=== PATIENT | female | born 1975 | race Caucasian/White ===

== ENCOUNTER → 2018-09-29 | Outpatient (CLI) | payer OTHER | END | disposition home or self-care (01) | LOC: CFH 07:08 | PROVIDERS: ATTEND Family Medicine | DX: N85.2 Hypertrophy of uterus (principal); N85.8 Other specified noninflammatory disorders of uterus | CPT/HCPCS: 76830 ==

== ENCOUNTER → 2019-02-07 | Outpatient (CLI) | payer OTHER ==
[~2019-02-07] MED LIST: ESTR1PAT49 TD; MULT-516 PO; PROGESTERONE TD; THYR30TA PO
[2019-02-07 09:58] LABS: BASOPHILS # (AUTO) 0.03 x10^3/uL (0-0.1); MD NO; MEAN PLATELET VOLUME 7.4 fL (7.4-10.4)
[2019-02-07 10:06] LABS: INTERNATIONAL NORMALIZED RATIO 1.05 (0.93-1.1)
[2019-02-07 10:07] LABS: BASOPHILS % (AUTO) 1 % (0-1); EOSINOPHILS # (AUTO) 0.07 x10^3/uL (0-0.4); EOSINOPHILS % (AUTO) 1 % (1-7); LYMPHOCYTES # (AUTO) 1.63 x10^3/uL (1-3.4); LYMPHOCYTES % (AUTO) 32 % (22-44); MEAN CORPUSCULAR HEMOGLOBIN 29.2 pg (27.0-34.8); MEAN CORPUSCULAR HGB CONC 32.9 g/dL (32.4-35.8); MEAN CORPUSCULAR VOLUME 88.7 fL (80-100); MONOCYTES % (AUTO) 8 % (2-9); NEUTROPHILS # (AUTO) 2.97 x10^3/uL (1.8-6.8); NEUTROPHILS % (AUTO) 58 % (42-75); PLATELET COUNT 249 x10^3/uL (130-400); RED BLOOD COUNT 5.42 x10^6/uL (3.82-5.3); RED CELL DISTRIBUTION WIDTH 14.5 % (9.6-15.2)
[2019-02-07 10:15] LABS: ALANINE AMINOTRANSFERASE 35 U/L (12-78); ALBUMIN 4.1 g/dL (3.4-5.0); ANION GAP 3 mmol/L (5-15); CHLORIDE 106 mmol/L (98-107); CREATININE 0.75 mg/dL (0.55-1.02)
[2019-02-07 10:19] LABS: ALKALINE PHOSPHATASE 59 U/L (45-117); BILIRUBIN,TOTAL 0.7 mg/dL (0.2-1.0); TOTAL PROTEIN 8.1 g/dL (6.4-8.2)
== END | disposition home or self-care (01) ==
LOC: STAR 08:21
PROVIDERS: ATTEND Specialist
DX: Z01.818 Encounter for other preprocedural examination (principal); D25.9 Leiomyoma of uterus, unspecified; R19.07 Generalized intra-abdominal and pelvic swelling, mass and lump; Z82.49 Family history of ischemic heart disease and other diseases of the circulatory system
CPT/HCPCS: 36415; 80053; 83615; 84703; 85025; 85610; 85730; 93005

== ENCOUNTER 2019-02-13 08:18 | Inpatient (IN) | payer OTHER ==
[~2019-02-13] VITALS: Ht 165.1 cm; Wt 78.3 kg
[2019-02-13] MEDS ORDERED: LACTATED RINGERS 1,000 ML IV SCH (08:41)
[2019-02-13 08:57] VITALS: BP 136/82
[2019-02-13] MEDS ORDERED: ONDANSETRON ODT 8 MG PO ONE (09:00)
[2019-02-13] MEDS ORDERED: SCOPOLAMINE PATCH, 1.5MG PATCH.TD72 TD ONE (09:00)
[2019-02-13] MEDS ORDERED: GABAPENTIN 300 MG CAPSULE PO ONE (09:00)
[2019-02-13] MEDS ORDERED: FENTANYL PF 250 MCG/5ML ONE (10:53)
[2019-02-13] MEDS ORDERED: CEFAZOLIN 1,000 MG ONE (10:54)
[2019-02-13] MEDS ORDERED: LIDOCAINE 2% 100MG/5ML SYRINGE ONE (10:54)
[2019-02-13] MEDS ORDERED: NEOSTIGMINE 1 MG/ML, 10ML ONE (10:54)
[2019-02-13] MEDS ORDERED: ROCURONIUM 10MG/ML,5ML ONE (10:54)
[2019-02-13] MEDS ORDERED: DEXAMETHASONE 4 MG/ML, 1ML ONE (10:54)
[2019-02-13] MEDS ORDERED: GLYCOPYRROLATE 0.2MG/1ML, 5ML ONE (10:54)
[2019-02-13] MEDS ORDERED: PROPOFOL 10 MG/ML, 20ML ONE (10:54)
[2019-02-13] MEDS ORDERED: METOCLOPRAMIDE 5 MG/ML, 2ML ONE (10:54)
[2019-02-13] MEDS ORDERED: MORPHINE SULFATE 4 MG/ML, 1ML IVPush PRN (12:00)
[2019-02-13] MEDS ORDERED: OXYcodone 5 MG/5 ML ORAL.SOL UDC PO PRN (12:00)
[2019-02-13] MEDS ORDERED: hydrALAzine 20 MG/ML, 1ML IV PRN (12:00)
[2019-02-13] MEDS ORDERED: PROMETHAZINE 25 MG/ML, 1ML IV PRN (12:00)
[2019-02-13] MEDS ORDERED: LABETALOL 5MG/ML, 20ML IV PRN (12:00)
[2019-02-13] MEDS: HYDROmorphone 2 MG/ML, 1ML IVPush PRN ×4 (13:01→13:44)
[2019-02-13] MEDS ORDERED: PROMETHAZINE 25 MG/ML, 1ML ONE (13:07)
[2019-02-13] MEDS ORDERED: FENTANYL PF 100 MCG/2ML ONE ×2 (13:07→13:49)
[2019-02-13] MEDS ORDERED: HYDROmorphone 1 MG/ML, 1ML AMP ONE ×2 (13:07→13:18)
[2019-02-13] MEDS ORDERED: OXYcodone 5 MG/5 ML ORAL.SOL UDC ONE (13:07)
[2019-02-13] MEDS: FENTANYL PF 100 MCG/2ML IV PRN ×2 (13:10→13:36)
[2019-02-13] MEDS: MEPERIDINE/PF 25MG/0.5ML IVPush PRN ×2 (13:16→13:46)
[2019-02-13] MEDS ORDERED: MEPERIDINE/PF 25MG/ML,1ML ONE (13:18)
[2019-02-13] MEDS ORDERED: KETOROLAC 30 MG/1 ML ONE (13:49)
[2019-02-13] MEDS: KETOROLAC 30 MG/1 ML IV PRN ×2 (13:52→20:25)
[2019-02-13] MEDS ORDERED: MORPHINE SULFATE 4 MG/ML, 1ML ONE (14:48)
[2019-02-13] MEDS: POTASSIUM CHLORIDE 20 MEQ in D5%-0.45% NACL 1,000 ML IV SCH (17:27)
[2019-02-13 19:50] VITALS: BP 118/75
[2019-02-14 00:24] VITALS: BP 110/63
[2019-02-14] MEDS: POTASSIUM CHLORIDE 20 MEQ in D5%-0.45% NACL 1,000 ML IV SCH ×3 (00:48→16:15)
[2019-02-14 04:15] VITALS: BP 105/69
[2019-02-14 05:15] LABS: BASOPHILS # (AUTO) 0.04 x10^3/uL (0-0.1); BASOPHILS % (AUTO) 1 % (0-1); EOSINOPHILS # (AUTO) 0.01 x10^3/uL (0-0.4); EOSINOPHILS % (AUTO) 0 % (1-7); LYMPHOCYTES % (AUTO) 16 % (22-44); MD NO; MEAN CORPUSCULAR HGB CONC 33.4 g/dL (32.4-35.8); MEAN CORPUSCULAR VOLUME 89.9 fL (80-100); MEAN PLATELET VOLUME 7.7 fL (7.4-10.4); MONOCYTES % (AUTO) 9 % (2-9); NEUTROPHILS # (AUTO) 6.79 x10^3/uL (1.8-6.8); NEUTROPHILS % (AUTO) 74 % (42-75); PLATELET COUNT 211 x10^3/uL (130-400); RED BLOOD COUNT 4.49 x10^6/uL (3.82-5.3); RED CELL DISTRIBUTION WIDTH 14.7 % (9.6-15.2)
[2019-02-14 07:20] VITALS: BP 99/62
[2019-02-14] MEDS: KETOROLAC 30 MG/1 ML IV PRN ×2 (08:05→15:03)
[2019-02-14] MEDS ORDERED: METOCLOPRAMIDE 10MG TABLET PO PRN (12:30)
[2019-02-14 12:45] VITALS: BP 106/66
[2019-02-14] MEDS: OXYcodone/APAP 7.5/325MG TABLET PO PRN ×2 (15:41→21:44)
[2019-02-14 20:42] VITALS: BP 99/60
[2019-02-15] MEDS: POTASSIUM CHLORIDE 20 MEQ in D5%-0.45% NACL 1,000 ML IV SCH ×2 (00:20→08:25)
[2019-02-15] MEDS: KETOROLAC 30 MG/1 ML IV PRN ×2 (00:34→06:32)
[2019-02-15] MEDS: OXYcodone/APAP 7.5/325MG TABLET PO PRN (03:31)
[2019-02-15 03:34] VITALS: BP 102/65
[2019-02-15 05:01] LABS: BASOPHILS # (AUTO) 0.01 x10^3/uL (0-0.1); BASOPHILS % (AUTO) 0 % (0-1); EOSINOPHILS # (AUTO) 0.16 x10^3/uL (0-0.4); EOSINOPHILS % (AUTO) 3 % (1-7); LYMPHOCYTES # (AUTO) 1.65 x10^3/uL (1-3.4); LYMPHOCYTES % (AUTO) 28 % (22-44); MD NO; MEAN CORPUSCULAR HEMOGLOBIN 29.3 pg (27.0-34.8); MEAN CORPUSCULAR HGB CONC 32.6 g/dL (32.4-35.8); MEAN CORPUSCULAR VOLUME 89.8 fL (80-100); MEAN PLATELET VOLUME 7.9 fL (7.4-10.4); MONOCYTES # (AUTO) 0.47 x10^3/uL (0.2-0.8); MONOCYTES % (AUTO) 8 % (2-9); NEUTROPHILS # (AUTO) 3.66 x10^3/uL (1.8-6.8); NEUTROPHILS % (AUTO) 62 % (42-75); PLATELET COUNT 174 x10^3/uL (130-400); RED BLOOD COUNT 3.96 x10^6/uL (3.82-5.3); RED CELL DISTRIBUTION WIDTH 14.4 % (9.6-15.2)
[2019-02-15 05:14] LABS: ANION GAP 3 mmol/L (5-15); CALCIUM 7.7 mg/dL (8.5-10.1); CHLORIDE 112 mmol/L (98-107); CREATININE 0.67 mg/dL (0.55-1.02)
[2019-02-15] MEDS ORDERED: OXYcodone 5 MG/5 ML ORAL.SOL UDC PO PRN (07:30)
[2019-02-15] MEDS ORDERED: IBUPROFEN 200 MG TABLET PO PRN (07:30)
[2019-02-15] MEDS ORDERED: OXYC5CAP2 PO (08:34)
[2019-02-15] MEDS ORDERED: IBUP-1222 PO (08:35)
[2019-02-15] MEDS ORDERED: ONDA4TAB7 PO (08:36)
[2019-02-15 08:39] VITALS: BP 110/71
== END 2019-02-15 10:45 | disposition home or self-care (01) | DRG 742 ==
LOC: ORIP 08:18 → 4NOR 15:38
PROVIDERS: ADMIT Specialist; ATTEND Specialist
PROC: 0UT70ZZ Resection of Bilateral Fallopian Tubes, Open Approach (ICD-10-PCS; 2019-02-13)
PROC: 0UT90ZZ Resection of Uterus, Open Approach (ICD-10-PCS; principal; 2019-02-13 10:00)
DX: D25.9 Leiomyoma of uterus, unspecified (principal); K50.90 Crohn's disease, unspecified, without complications; Z88.5 Allergy status to narcotic agent; Z88.8 Allergy status to other drugs, medicaments and biological substances; Z88.6 Allergy status to analgesic agent; Z91.018 Allergy to other foods
CPT/HCPCS: 36415; 74018; J3490; 80048; 85025; 86850; 86900; 88307; 88329; G0378; J0690; J1100; J1170; J1885; J2175; J2270; J2550; J2704; J2710; J3010; J3480; Q0162; C1765; J2765; J7120

== ENCOUNTER 2019-06-23 07:26 | Outpatient (CLI) | payer OTHER ==
[~2019-06-23 07:26] MED LIST changes: +IBUP-1222 PO; +ONDA4TAB7 PO; +OXYC5CAP2 PO
== END 2019-06-23 23:59 | disposition home or self-care (01) ==
LOC: CFH 07:26 → EDSTATUS 07:45 → CFH 23:59
PROVIDERS: ATTEND Registered Nurse
DX: Z12.31 Encounter for screening mammogram for malignant neoplasm of breast (principal)
CPT/HCPCS: 76641; 77063; 77067

== ENCOUNTER → 2021-05-06 | Outpatient (CLI) | payer OTHER ==
[2021-05-06 14:07] LABS: ALBUMIN 3.7 g/dL (3.4-5.0); ANION GAP 9 mmol/L (5-15); CALCIUM 8.9 mg/dL (8.5-10.1); CHLORIDE 109 mmol/L (98-107)
[2021-05-06 14:16] LABS: ALANINE AMINOTRANSFERASE 23 U/L (12-78); ALKALINE PHOSPHATASE 61 U/L (45-117); BILIRUBIN,TOTAL 0.5 mg/dL (0.2-1.0); CHOL/HDL RATIO 2.9; CHOLESTEROL, TOTAL 235 mg/dL (140-239); CREATININE 0.59 mg/dL (0.55-1.02); HDL CHOL % 35 % (28-40); HDL CHOLESTEROL (DIRECT) 82 mg/dL (40-60); LDL CHOLESTEROL,CALCULATED 142 mg/dL (54-169); LDL/HDL RATIO 1.7 (0.5-3.0); TOTAL PROTEIN 7.6 g/dL (6.4-8.2); TRIGLYCERIDES 54 mg/dL (50-200); VLDL CHOLESTEROL 11 mg/dL (0-25)
== END | disposition home or self-care (01) ==
LOC: LAB 13:38
PROVIDERS: ATTEND Family Medicine
DX: Z13.220 Encounter for screening for lipoid disorders (principal); R79.9 Abnormal finding of blood chemistry, unspecified; R53.83 Other fatigue; E03.9 Hypothyroidism, unspecified; E55.9 Vitamin D deficiency, unspecified
CPT/HCPCS: 36415; 80053; 80061; 82306; 82985; 83036; 83525; 84439; 84443; 84481

== ENCOUNTER → 2021-07-07 | Outpatient (CLI) | payer OTHER | END | disposition home or self-care (01) | LOC: CFH 09:52 | PROVIDERS: ATTEND Psychiatry & Neurology Neurology | DX: M50.321 Other cervical disc degeneration at C4-C5 level (principal); M48.02 Spinal stenosis, cervical region | CPT/HCPCS: 72050 ==

== ENCOUNTER 2021-07-31 16:39 | Outpatient (CLI) | payer OTHER | END 2021-07-31 23:59 | disposition home or self-care (01) | LOC: LAB 16:39 | PROVIDERS: ATTEND Family Medicine | DX: Z11.3 Encounter for screening for infections with a predominantly sexual mode of transmission (principal) ==